=== PATIENT | male | born 1975 | race Caucasian/White ===

== ENCOUNTER 2021-03-01 08:05 | Emergency (ER) | payer SELFPAY ==
[~2021-03-01] VITALS: Ht 180.3 cm; Wt 88.0 kg
--- NOTE | 2021-03-01 08:16 | PHYS DOC ---
Past History Past Medical History: Depression (LEROY ALCALA MD) Smoking: Cigarettes Alcohol Use: Occasionally Drug Use: Amphetamine, Marijuana (LEROY ALCALA MD) General Adult EDM: Chief Complaint: SUICIDAL IDEATION HPI: HPI: Patient is a 46-year-old male brought in by EMS for suicidal ideation. Patient says he has a plan to hang himself. His trigger is the suicide of his brother 9 months ago by hanging. Patient states he is from [place] [email or web address] States he had come up because of his sister, but she is in [facility]. Patient states he has a history of ADHD and bipolar 1 disorder. Was previously on Ativan, gabapentin, and Seroquel but has not had his medications in "a long time". Patient states he has had a second dose of the Materna Covid vaccine within the last 2 weeks. Denies any other complaints or medical history. Patient admits to doing methamphetamines yesterday and has not slept. (ELOISE ANDERSON MD) Review of Systems: Review of Systems: All other systems within normal limits except for as noted in the HPI (ELOISE ANDERSON MD) Physical Exam: PE: Constitutional: Well developed, well nourished, no acute distress, non-toxic appearance. [] HENT: Normocephalic, atraumatic, bilateral external ears normal, nose normal. [] Eyes: PERRLA, conjunctiva normal, no discharge. [] Neck: No rigidity, supple, no stridor. [] Cardiovascular: Regular rate and rhythm, brisk cap refill [] Lungs & Thorax: Non labored symmetric respirations, no tachypnea or respiratory distress [] Abdomen: Soft, nondistended. Skin: Warm, dry, no erythema, no rash. [] Back: Unremarkable Extremities: No deformities, range of motion grossly intact, no lower extremity edema [] Neurologic: Alert and oriented X 3, no focal deficits noted. [] Psychologic: Flat affect, suicidal ideation (ELOISE ANDERSON MD) EKG: EKG: [] (ELOISE ANDERSON MD) EKG: My interpretation EKG shows a sinus rhythm at 98 bpm. No acute morphology. Time of EKG is 817 hours previously read at 820 hours . (LEROY ALCALA MD) Radiology/Procedures: Radiology/Procedures: [] (ELOISE ANDERSON MD) Heart Score: C/O Chest Pain: No Risk Factors: Risk Factors: DM, Current or recent (<one month) smoker, HTN, HLP, family history of CAD, obesity. Risk Scores: Score 0 - 3: 2.5% MACE over next 6 weeks - Discharge Home Score 4 - 6: 20.3% MACE over next 6 weeks - Admit for Clinical Observation Score 7 - 10: 72.7% MACE over next 6 weeks - Early Invasive Strategies (ELOISE ANDERSON MD) Course & Med Decision Making: Course & Med Decision Making Pertinent Labs and Imaging studies reviewed. (See chart for details) Pending placement shift change, patient refusing labs. [] (ELOISE ANDERSON MD) Course & Med Decision Making See Dr. Anderson chart for details.prior shift change, 1800. Labs still pending. See PAT eval. Pt. currently refusing lab draws. 2100. Eventually agreed to arterial stick. Pt. medically clear to admit for psych. admission. Endorsed to Dr. Arguello at shift change 0600. Awaiting psych. bed placement. Impression: 1. Depression 2. Suicidal Ideation 3. Hx. Behavioral disorder 4. Hx. Tobacco and Marijuana Use 5. Hx. amphetamine use 6. Mild normocytic anemia 12.9 hemoglobin (LEROY ALCALA MD) Dragon Disclaimer: Dragon Disclaimer: This electronic medical record was generated, in whole or in part, using a voice recognition dictation system. (ELOISE ANDERSON MD) Departure Departure: Impression: Primary Impression: Methamphetamine abuse Additional Impression: Suicidal ideations Referrals: PCP,NO (PCP) ELOISE ANDERSON MD Mar 01, 2021 08:16 LEROY ALCALA MD Mar 01, 2021 18:50
--- NOTE | 2021-03-01 08:27 | EKG ---
[address] [address] Test Date: 2021-03-01 Test Time: 08:17:54 Pat Name: LEROY NARAYAN Department: Room: Gender: M Stock Order Lister: PATRIC : 1975 Requested By: ELOISE WATKINS Order Number: [id number] Reading MD: Measurements Intervals [place] Rate: 98 P: 58 ME: 134 QRS: 7 QRSD: 90 T: 26 QT: 344 QTc: 441 Interpretive Statements SINUS RHYTHM NORMAL ECG RI6.02 No previous ECG available for comparison
[2021-03-01] MEDS ORDERED: LORazepam 1 MG TABLET PO ONE ×2 (10:15→21:15)
[2021-03-01 21:52] LABS: BASO % 1 % (0-3); EOS # 0.3 x10^3/uL (0.0-0.7); EOS % 5 % (0-3); HEMATOCRIT 38.1 % (39.0-53.0); HEMOGLOBIN 12.9 g/dL (13.0-17.5); LYMPH # 1.7 x10^3/uL (1.0-4.8); LYMPH % 30 % (24-48); MEAN CORPUSCULAR HEMOGLOBIN 31 pg (25-35); MEAN CORPUSCULAR HGB CONC 34 g/dL (31-37); MEAN CORPUSCULAR VOLUME 92 fL (79-100); MONO # 0.6 x10^3/uL (0.0-1.1); MONO % 10 % (0-9); NEUT % 54 % (31-73); PLATELET COUNT 162 x10^3/uL (140-400); RED BLOOD COUNT 4.13 x10^6/uL (4.30-5.70); RED CELL DISTRIBUTION WIDTH 12.8 % (11.5-14.5); WHITE BLOOD COUNT 5.6 x10^3/uL (4.0-11.0)
[2021-03-01 21:59] LABS: CALCIUM 8.4 mg/dL (8.5-10.1); CREATININE 0.9 mg/dL (0.7-1.3); GFR 91.3; POTASSIUM 3.4 mmol/L (3.5-5.1)
[2021-03-01 22:01] LABS: BARBITURATES NEG (NEG); BENZODIAZEPINES POS (NEG); CANNABINOIDS POS (NEG); COCAINE NEG (NEG); METHADONE NEG (NEG); OPIATES NEG (NEG); PHENCYCLIDINE NEG (NEG)
[2021-03-01 22:03] LABS: BILIRUBIN,URINE MOD (NEG); CLARITY,URINE HAZY; COLOR,URINE AMBER; GLUCOSE,URINE NEG (NEG); NITRITE,URINE NEG (NEG); UROBILINOGEN,URINE 0.2 mg/dL (0.2 mg/dL)
[2021-03-01 22:04] LABS: BACTERIA,URINE 0 /HPF (0-FEW); RBC,URINE 0 /HPF (0-2); SQUAMOUS EPITHELIAL CELL,UR OCC /LPF; WBC,URINE 0 /HPF (0-4)
[2021-03-01 22:05] LABS: ALBUMIN 3.3 g/dL (3.4-5.0); TOTAL BILIRUBIN 0.8 mg/dL (0.2-1.0); TOTAL PROTEIN 6.6 g/dL (6.4-8.2)
[2021-03-01 22:11] LABS: ACETAMIN < 2.0 mcg/mL (10-30); ETHANOL < 10 mg/dL (0-10); SALIC < 2.8 mg/dL (2.8-20.0)
[2021-03-01 22:11] LABS: AMPHETAMINE/METHAMPHETAMINE POS (NEG)
[2021-03-02 07:21] VITALS: BP 109/60
[2021-03-02] MEDS ORDERED: LORazepam 1 MG TABLET PO ONE (08:15)
== END 2021-03-02 08:58 ==
LOC: ER 08:05
DX: F32.9 Major depressive disorder, single episode, unspecified (principal); R45.851 Suicidal ideations; D64.9 Anemia, unspecified; F15.10 Other stimulant abuse, uncomplicated; F12.10 Cannabis abuse, uncomplicated; F17.210 Nicotine dependence, cigarettes, uncomplicated; Z20.822 Contact with and (suspected) exposure to COVID-19
CPT/HCPCS: 36415; 80053; 80307; 80329; 81001; 85025; 87426; 93005; 99285; G0480; U0003